=== PATIENT | male | born 2000 | race Two or more races ===

== ENCOUNTER 2022-07-23 22:35 | Emergency (ER) | payer MEDICAID ==
[~2022-07-23] VITALS: Ht 188 cm; Wt 123.0 kg
[2022-07-23] MEDS ORDERED: ONDANSETRON HCL 4MG/2ML INJ IV STA (22:49)
[2022-07-23] MEDS ORDERED: MORPHINE SULFATE 4 MG/ML CPJ (NOT FOR IM USE) IV STA (22:49)
[2022-07-23] MEDS ORDERED: CEFAZOLIN 1000MG PREMIX 50 ML IV ONE (23:00)
[2022-07-23] MEDS ORDERED: BACITRACIN ZINC OINT UDPKT TOP ONE (23:00)
[2022-07-23] MEDS ORDERED: SODIUM CHLORIDE 0.9% 1,000 ML IV ONE (23:00)
[2022-07-23] MEDS ORDERED: TETANUS, DIPHTHERIA, PERTUSSIS VAC/PF 0.5ML (>10YR OLD) IM ONE (23:00)
[2022-07-23 23:26] LABS: BASOPHILS % 0.5 % (0.0-2.0); EOSINOPHILS % 2.7 % (0.0-5.0); HEMATOCRIT. 43.6 % (42.0-52.0); HEMOGLOBIN. 14.9 g/dL (14.0-18.0); LYMPHOCYTES % 30.9 % (20.0-50.0); MEAN CORPUSCULAR HEMOGLOBIN 29.8 pg (28.0-32.0); MEAN CORPUSCULAR VOLUME 87.1 fL (80.0-94.0); MEAN PLATELET VOLUME 8.8 fl (7.4-10.4); MONOCYTES % 5.4 % (2.0-8.0); NEUTROPHILS % 60.5 % (40.0-76.0); PLATELET 311 x1000/uL (130-400); RED CELL DISTRIBUTION WIDTH 13.5 % (11.6-14.6)
[2022-07-23 23:59] LABS: CHLORIDE 107 mEq/L (98-107)
[2022-07-24] MEDS ORDERED: FENTANYL CITRATE/PF 50MCG/ML 2ML VIAL IV ONE
[2022-07-24] MEDS ORDERED: CEPH500T MT (00:32)
[2022-07-24] MEDS ORDERED: HYDR-4001 MT (00:32)
[2022-07-24] MEDS ORDERED: HYDROCODONE/ACETAMINOPHEN 10/325MG TABLET PO ONE (01:15)
[2022-07-24 01:27] VITALS: BP 157/67
== END 2022-07-24 01:31 | disposition home or self-care (01) ==
LOC: ER 22:35
DX: S71.132A Puncture wound without foreign body, left thigh, initial encounter (principal); S71.131A Puncture wound without foreign body, right thigh, initial encounter; M85.061 Fibrous dysplasia (monostotic), right lower leg; J45.909 Unspecified asthma, uncomplicated; W34.09XA Accidental discharge from other specified firearms, initial encounter; Y93.89 Activity, other specified; Y92.89 Other specified places as the place of occurrence of the external cause; Y99.8 Other external cause status
CPT/HCPCS: 36415; 71045; 72170; 73552; 80048; 85025; 86850; 86900; 86901; 90471; 90715; 96361; 96365; 96375; 99291; J0690; J2270; J2405; J3010; J7030; 99284

== ENCOUNTER → 2022-07-23 | Emergency (ER) | payer MEDICAID ==
[~2022-07-23] MED LIST: CEPH500T MT; HYDR-4001 MT
== END ==
LOC: ER 22:36
DX: Z53.21 Procedure and treatment not carried out due to patient leaving prior to being seen by health care provider (principal)